=== PATIENT | male | born 1970 | race Two or more races ===

== ENCOUNTER 2017-02-12 14:11 | Emergency (ER) | payer SELFPAY ==
[~2017-02-12] VITALS: Ht 180.3 cm; Wt 85.0 kg
[2017-02-12] MEDS ORDERED: SODIUM CHLORIDE 0.9% 1,000 ML IV ONE ×2 (14:46→20:12)
[2017-02-12] MEDS ORDERED: LORAZEPAM 2MG/ML CPJ IV ONE ×3 (15:00→18:15)
[2017-02-12 15:07] LABS: BASOPHILS % 1.1 % (0.0-2.0); EOSINOPHILS % 2.1 % (0.0-5.0); HEMATOCRIT. 42.6 % (42.0-52.0); HEMOGLOBIN. 14.2 g/dL (14.0-18.0); LYMPHOCYTES % 23.3 % (20.0-50.0); MEAN CORPUSCULAR HEMOGLOBIN 26.9 pg (28.0-32.0); MEAN CORPUSCULAR HGB CONC 33.3 g/dL (31.0-37.0); MEAN CORPUSCULAR VOLUME 80.8 fL (80.0-94.0); MEAN PLATELET VOLUME 6.2 fl (7.4-10.4); MONOCYTES % 5.2 % (2.0-8.0); NEUTROPHILS % 68.3 % (40.0-76.0); PLATELET 357 x1000/uL (130-400); RED BLOOD CELL COUNT 5.27 mill/uL (4.7-6.1); RED CELL DISTRIBUTION WIDTH 14.6 % (11.6-14.6); WHITE BLOOD COUNT 11.2 x1000/uL (4.5-11.0)
[2017-02-12 15:12] LABS: CHLORIDE 104 mEq/L (98-107); INDEX HEMOLYSI 1 (1-3); INDEX ICTERIC 1 (1-4); INDEX LIPEMIC 1 (1-3)
[2017-02-12 15:23] LABS: ACETAMINOPHEN 2 ug/mL (10-30); ANION GAP 16; CALCIUM 7.8 mg/dL (8.5-10.1); CARBON DIOXIDE 23 mEq/L (21-32); UREA NITROGEN BLOOD 11 mg/dL (7-21); eGFR > 60 mL/min (>60)
[2017-02-12 15:25] LABS: ETHANOL BLOOD 361 mg/dL
[2017-02-12] MEDS ORDERED: OLANZAPINE 10 MG/VIAL IM ONE (18:15)
[2017-02-12 18:30] LABS: *AMPHETAMINES SCREEN URINE NEGATIVE (NEGATIVE); *BARBITURATES SCREEN URINE NEGATIVE (NEGATIVE); *BENZODIAZEPINES SCREEN URINE NEGATIVE (NEGATIVE); *COCAINE SCREEN URINE NEGATIVE (NEGATIVE); CANNABINOID URINE SCREEN NEGATIVE (NEGATIVE); ECSTASY MDMA SCREEN URINE NEGATIVE (NEGATIVE); METHADONE URINE SCREEN NEGATIVE (NEGATIVE); OPIATES URINE SCREEN NEGATIVE (NEGATIVE); PHENCYCLIDINE URINE SCREEN NEGATIVE (NEGATIVE)
[2017-02-12] MEDS ORDERED: FOLIC ACID 1 MG, THIAMINE HCL 100 MG, MVI, ADULT NO.1 10 ML in DEXTROSE 5% WATER 1,000 ML IV ONE ×4 (20:15)
[2017-02-13 10:58] VITALS: BP 101/64
== END 2017-02-13 11:00 | disposition home or self-care (01) ==
LOC: ER 14:19
DX: G93.40 Encephalopathy, unspecified (principal); F10.120 Alcohol abuse with intoxication, uncomplicated; F15.10 Other stimulant abuse, uncomplicated; Y90.8 Blood alcohol level of 240 mg/100 ml or more
CPT/HCPCS: 36415; 51702; 80048; 80305; 80307; 80329; 82962; 85025; 96361; 96365; 96366; 96372; 96375; 96376; 99285; G0482; J2060; J3411; J3490; J7030; J7070; Z7610